=== PATIENT | female | born 1960 | race Caucasian/White ===

== ENCOUNTER 2025-02-28 | Day surgery (SDC) | payer OTHER, SELFPAY ==
--- NOTE | 2025-02-25 05:01 | PM.IMHP ---
H&P: HPI History of Present Illness Date/Time: 02/25/25 05:01 Chief Complaint: UUI Narrative: UUI with >50% improvement the PNE trial Review of Systems Review of Systems: All systems reviewed & are unremarkable except as noted in HPI and below Meds Home Medications and Allergies Allergies Allergy/AdvReac Type Severity Reaction Status Date / Time No Known Allergies Allergy Unverified 12/03/18 14:21 Exam Narrative: NAD Normal breathing A+O x3 Assessment and Plan Assessment and plan (1) Urge incontinence: Code(s): N39.41 - Urge incontinence Status: Acute Assessment and Plan: Neurostimulator Implant
[2025-02-25 10:35] VITALS: BMI 33.5
--- NOTE | 2025-02-25 10:43 | PC.NURSE ---
Report to the Outpatient Waiting Room, entrance under the green pavilion located off [facility], at time _0700_ on date _[id number]_. Planned Procedure Time: _0900_.? Time changes happen often and if your time is changed the preop area will call you the afternoon before. - You and your visitor will be asked to self-screen and do not enter if you have any COVID symptoms. Please call surgeon if you need to reschedule. - A mask is optional within the hospital at this time. Patients may have clear liquids (water, carbonated beverages, clear teas, apple juice) until 3 hours prior to surgery with a maximum of 20 ounces. - No food from midnight until time of surgery and no smoking, or chewing tobacco (or any form of nicotine). No chewing gum, candy or mints. Take only the following medications with a SIP of water on the morning of surgery: ___None____ DO NOT STOP ANY OF YOUR OTHER PRESCRIPTION MEDICATIONS PRIOR TO SURGERY EXCEPT THE FOLLOWING Hold all vitamins and supplements for 3 days per anesthesiologist. Medications to discontinue per physician Date to take last dose Please no make-up, nail kenyan, hairspray, perfume, deodorant, or body powder the day of surgery.? No jewelry (including any body piercings) or valuables the day of surgery, leave them at home.? Please take a shower or bath the night before, or the morning of, surgery with an antibacterial soap.? Wear comfortable, loose fitting clothing.? - Jewelry must be removed prior to entering the operating room.? Rings and piercings that are not removed may be cut off. - The hospital will not accept responsibility for valuables.? - Please leave all valuables, including medications, at home the day of surgery. If you are going home after surgery, a licensed transit mixer driver must drive you home.? - NO public transportation without another adult if you receive anesthesia. - We recommend that an adult stay with you for 24 hours following discharge. - We also recommend that you do not drive, make important decision, drink alcoholic beverages, or take any drugs that were not prescribed by your health care provider for at least 24 hours after your discharge time. Follow any additional instructions given to you from your surgeon. Telephone instructions given to __Katrina___and asked if any additional questions and then verbalized understanding. Patient advised to call surgeon office or pre surgery nurse liaison [phone] if any additional questions.
--- NOTE | ~2025-02-28 | XR_ITS ---
EXAMINATION: FLUORO NEUROSTIM INSERT < 1HR DATE: 02/28/2025 09:38 INDICATION: Neuro stimulator insertion TECHNIQUE: 2 fluoroscopic images in frontal and lateral projections of the sacrum were obtained niranjan chaudhry procedure performed by Dr. Rodríguez.. Radiologist was not present for the procedure or imaging. The amount of fluoroscopy time used during this procedure was 1.0 minutes. Total DAP was 11.402 Gycm^2. COMPARISON: None. FINDINGS: Distal tip of an Interstim lead extends from posterior to anterior through an S3 neural for amen. Markers are not indicating whether this is left or right-sided and there are no prior images fo r comparison. IMPRESSION: 1. Interstim lead extending through an S3 neural foramen. See procedure note for further detail and t o confirm whether this is on the right or left. Reviewed, dictated and finalized at location A. IMPRESSION: 1. Interstim lead extending through an S3 neural foramen. See procedure note fo r further detail and to confirm whether this is on the right or left.
--- OUTSIDE RECORDS SUMMARY | 2025-02-28 00:03 | XMS_ITS | Encounter Summary ---
Author Organization [facility] Address [address] [place] [address] Phone Care Team Providers Care School Operations Manager Name Role Phone Toby Mi MD Primary Care Provider [phone] Prisca Thorpe DO Primary Care Provider [phone] Shira Kimble MD Unavailable Porfirio Covarrubias MD Primary Care Provider Anaid Morrison MD Unavailable [phone] Gabriele ALICEA MD, Courtney Unavailable [phone] Meredith Mccormack DO Unavailable [phone] Encounter Details Date Type Department Care Team (Late st Contact Info) Description 12/28/2018 Ophth Exam [facility] Op[facility]mology [address] [place] [address] 1[address] [place] [id number] Roz Looney MD PhD [id number] [address] Social History Tobacco Use Types Packs/Day Years Used Date Smoking Tobacco: Former Smokeless Tobacco: Never Alcohol Use Standard Drinks/Week Comments No 0 (1 standard drink = 0.6 oz pur e alcohol) Comments No Sex and Gender Information Value Date Recorded Sex Assigned at Not on file Legal Sex Female 3:24 PM VESSEL SCRAPPER Gender Identity Female 10/04/2021 7:16 AM VESSEL SCRAPPER Sexual Orientation Straight 02/03/2022 8: 50 PM CDT 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 Not on file Not on file documented as of this encounter Plan of Treatment Not on file documented as of this encounter Visit Diagnoses Not on filedocumented in this encounter Additional Health Concerns Infection Onset Date Last Indicated Resolved Time COVID: Suspected 10/24/2023 10/24/2023 10/24/2023 1:07 PM VESSEL SCRAPPER COVID: Suspected 10/24/2023 10/24/2023 10/24/2023 9:20 PM VESSEL SCRAPPER Influenza, adult 10/24/2023 10/24/2023 10/31/2023 3:05 AM VESSEL SCRAPPER documented as of this encounter Eye Exam Visual Acuity (Near card) Right eye Left eye Near sc 20/70 ph 20/20-1 20/20-1 Tonometry (Tonopen, 2:29 AM) Right eye Left eye Pressure 23 16 Pupils Dark Light Shape React APD Right eye 5 3 Round Slow None Left eye 3.5 2 Round Brisk None Visual Erazo Right eye Left eye Full Full Extraocular Movement Right eye Left eye Full Full Neuro/Psych Oriented x3: Yes Mood/Affect: Normal Dilation Both eyes: 2.5% Phenylephrin e, 1.0% Mydriacyl @ 2:30 AM External Exam Right eye Left eye External Mild ecchymosis and swelling of periorbital area Slit Lamp Exam Right eye Left eye Lids/Lashes As above Normal Conjunctiva/Sclera temp and sup ARMINDA, no conj lac. No FB seen in conj sac by everting lids, sweeping sup and inf fornice by cotton tips White and quiet Cornea Two epi defects (2mm x1mm at 0800 peripherally, 5mmx3.7mm in central area) and several epi erosion in the rest of cornea, Epithelial defect, Punctate stain, Epi defect, Epi erosion, Layered hyphema Clear Anterior Chamber 1-mm layered hyphema with blood stain infer. Rare cells and no flare Deep and quiet Iris Slightly dilated and slowly reac tive Round and reactive Lens trace NS Clear Vitreous Normal. No traci vit heme Normal Fundus Exam Right eye Left eye Disc Normal Normal C/D Ratio 0.1 0.1 Macula Normal Normal Vessels Normal. No heme or commotio Norm al Periphery Normal. No RD/RT Normal. Temp hy perpigmentary change Care Teams School Operations Manager Relationship Specialty Start Date End Date Toby Mi MD [address] [facility] [place] [address] PCP - General 08/01/17 12/15/19 Prisca Thorpe DO [address] [facility] [address] [address] PCP - General Family Medicine 12/16/19 06/23/24 Porfirio Covarrubias MD [address] [facility] [place] [address] PCP - General Family Medicine 06/24/24 Shira Kimble MD [address] [facility] [place] [address] Pi/Senior Research Associate Obstetrics and Gynecology 12/16/19 Anaid Morrison MD [address] [facility] [address] [place] [address] Consulting Physician Sleep Medicine 06/24/24 [place] [address] [address] [facility] [address] [place] [address] Consulting Physician Urology 06/24/24 Meredith Mccormack DO [address] [facility] [address] [place], [place] [id number] Consulting Physician Endocrinology Diabetes & Metabolism 08/06/24 documented as of this encounter
--- OUTSIDE RECORDS SUMMARY | 2025-02-28 00:04 | XMS_ITS | Referral Summary ---
Author Organization [facility] [address] Address [address] [place] [address] Phone Care Team Providers [employer] Speech Language Pathologist Name Role Phone Cam Amanda MD Unavailable Porfirio Covarrubias MD Primary Care Provider Anaid Morrison MD Unavailable [phone] Gabriele ALICEA MD, Courtney Unavailable [phone] Meredith Mccormack DO Unavailable [phone] Encounters Date Type Department Care Team Description 02/25/2025 Telephone [facility] - Sleep Medicine [address] [place] [address] [address] [place] [id number] Shavon Roa PRIOR AUTHORIZATION FOR ZOLPIDEM 12/30/2024 1:00 PM CDT Ancillary Procedure [facility] [address] [facility] [address] [place] [address] Encounter for screening mammogram for breast cancer 12/25/2024 Results Follow-Up [facility] [place] [address] [facility] [address] [place] [address] Porfirio Covarrubias MD Ferritin, Iron profile w/ IBC, Folate, Additional followed-up results: 7 12/23/2024 2:35 PM CDT Lab [facility] [address] [place], [place] Macrocytic anemia; Pure hypercholesterolemia; Class 1 obesity due to excess calories with serious comorbidity and body mass index (BMI) of 31.0 to 31.9 in adult 12/23/2024 1:45 PM CDT Office Visit [facility] [place] [address] [facility] [address] [place] [phone] Porfirio Covarrubias MD Pure hypercholesterolemia (Primary Dx); Primary insomnia; Non-toxic multinodular goiter; Class 1 obesity due to excess calories with serious comorbidity and body mass index (BMI) of 31.0 to 31.9 in adult; Bladder spasms; Non-seasonal allergic rhinitis due to other allergic trigger; Encounter for screening mammogram for malignant neoplasm of breast; Macrocytic anemia 12/16/2024 3:20 PM CDT Office Visit [facility] [address] [place] [facility] [address] [place] [phone] Cam Amanda MD Encounter for gynecological examination without abnormal finding (Primary Dx); Encounter for screening mammogram for breast cancer; Urinary frequency from Last 3 Months Allergies Active Allergy Reactions Criticality Noted Date Comments Doxepin Itching Low 09/05/2023 Medications cetirizine (ZyrTEC) 10 mg tabletIndications:Non- seasonal allergic rhinitis, unspecified trigger Take 1 tablet (10 mg total) by mouth daily as needed for allergies 90 tablet 3 024 2024 Active fluticasone propionate (FLONASE) 50 mcg/actuation nasal sprayIndications:Non-s easonal allergic rhinitis, unspecified trigger SHAKE LIQUID AND USE 2 SPRAYS IN EACH NOSTRIL DAILY 48 g 1 025 Active rosuvastatin (CRESTOR) 10 mg tabletIndications:Pure hypercholesterolemia Take 1 tablet (10 mg total) by mouth nightly 100 tablet 1 025 2024 Active zolpidem (AMBIEN) 10 mg tablet TAKE 1 TABLET(10 MG) BY MOUTH EVERY NIGHT NEEDED FOR SLEEP 90 tablet 1 025 Active rosuvastatin (CRESTOR) 10 mg tabletIndications:Pure hypercholesterolemia Take 1 tablet (10 mg total) by mouth nightly 100 tablet 1 024 2024 Discontinued( Reorder) zolpidem (AMBIEN) 10 mg tablet Take 1 tablet (10 mg total) by mouth nightly as needed for sleep 90 tablet 1 024 2024 Discontinued Active Problems Problem Noted Date Diagnosed Date Preventative health care 06/24/2024 Assessment & Plan (06/24/2024 3:56 PM CDT): - New or chronic worsening conditions: allergic rhinitis - Mental health: no significant psychiatric/mental health conditions affecting her day to day functioning - Dental health: Recommend regular dental care and cleaning. Discussed importance of regular tooth brushing, flossing, and dental visits. - Nutrition: Recommend moderation in sodium/caffeine intake, saturated fat and cholesterol, caloric balance, sufficient intake of fresh fruits, vegetables - Exercise: Recommend to exercise at least 30 minutes moderate to vigorous exercise most days of the week. (minimum 150 minutes weekly) - Immunizations: Age and sex appropriate immunizations reviewed and offered - Cervical Cancer screening: s/p partial hysterectomy, follows with OBGYN - Breast Cancer screening: Up to date - Colon cancer screening: Up to date - Lung cancer screening: not indicated - Bone desnity/osteoporosis screening:not indicated - control: s/p partial hysterectomy Personal history of tobacco use 06/24/2024 Overview (12/23/2024): Quit 1997 Assessment & Plan (06/24/2024 3:46 PM CDT): Social History Tobacco Use Smoking Status Former Average packs/day: 0.8 packs/day for 22.0 years (16.5 ttl pk-yrs) Types: Cigarettes Start date: 1975 Smokeless Tobacco Never - continue with abstinence History of neck surgery 06/24/2024 Overview (06/24/2024): S/p Cervical fusion involving C6-C7 Assessment & Plan (06/24/2024 3:51 PM CDT): - hx of neck surgery [address] Fu - hx of cervical fusion involving C6-C7 Non-seasonal allergic rhinitis 06/24/2024 Assessment & Plan (12/23/2024 2:17 PM CDT): - recent diagnosis - recommend cetirizine 10 daily and Fluticasone nasal sprays The current medical regimen is effective; continue present plan and medications. Assessment & Plan (06/24/2024 3:58 PM CDT): - new diagnosis - recommend cetirizine 10 daily and start Fluticasone nasal sprays, order placed Primary insomnia 03/06/2023 Overview (12/23/2024): Managed by sleep medicine [id number] Assessment & Plan (12/23/2024 2:11 PM CDT): - Chronic longstanding initial and sleep maintenance insomnia - Well controlled with zolpidem 10 mg and behavioral measures for insomnia, plus better control of bladder symptoms. Continue zolpidem 10 mg nightly. - Established and managed by sleep medicine now The current medical regimen is effective; continue present plan and medications. Assessment & Plan (09/23/2024 9:02 AM GRAPPLE SKIDDER OPERATOR): Chronic longstanding initial and sleep maintenance insomnia. Now well controlled with zolpidem 10 mg and behavioral measures for insomnia, plus better control of bladder symptoms. Continue zolpidem 10 mg nightly. Assessment & Plan (06/24/2024 3:34 PM CDT): - Chronic longstanding initial and sleep maintenance insomnia. - Well controlled with zolpidem 10 mg and behavioral measures for insomnia, plus better control of bladder symptoms. Continue zolpidem 10 mg nightly. - Established and managed by sleep medicine now Assessment & Plan (03/18/2024 9:52 AM CDT): Chronic longstanding initial and sleep maintenance insomnia. Now well controlled with zolpidem 10 mg and behavioral measures for insomnia, plus better control of bladder symptoms. Continue zolpidem 10 mg nightly. Assessment & Plan (08/31/2023 1:04 PM GRAPPLE SKIDDER OPERATOR): Chronic longstanding initial and sleep maintenance insomnia. Improved with zolpidem but with persistent and problematic nighttime awakenings during the second half of the night. Will trial extended release zolpidem for improved sleep maintenance. Advised against checking the clock if she wakes during the night. Assessment & Plan (08/08/2023 10:58 AM GRAPPLE SKIDDER OPERATOR): No improvement. 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 Refer to Sleep Medicine. Assessment & Plan (03/06/2023 9:10 AM CDT): Trial of Ambien, will follow. Decrease caffeine intake. Xanthelasma of left lower eyelid 03/06/2023 Assessment & Plan (03/06/2023 9:18 AM CDT): Encouraged low chol diet. Bladder spasms 04/12/2021 Overview (12/23/2024): Follows with Urology Assessment & Plan (12/23/2024 2:16 PM CDT): - followed and evaluated by Urology - She has tried Myrbetriq(06/2023) and Oxybutynin (07/2023). She has failed Gemtesa. - she has spastic bladder, she was evaluated by a specialist and concluded that she get botox injections for her bladder and has declined the recommendation Assessment & Plan (06/24/2024 3:52 PM CDT): - followed and evaluated by Urology - She has tried Myrbetriq(06/2023) and Oxybutynin (07/2023). She has failed Gemtesa. - she has spastic bladder, she was evaluated by a specialist and concluded that she get botox injections for her bladder and has declined the recommendation Assessment & Plan (04/12/2021 10:43 AM CDT): Trial of Detrol LA. if no improvement, consider referral to urologist. Class 1 obesity due to exces s calories with serious comorbidity and body mass index (BMI) of 31.0 to 31.9 in adult 04/20/2020 Assessment & Plan (12/23/2024 2:14 PM CDT): Wt Readings from Last 3 Encounters: 12/23/24 84.4 kg (186 lb) 12/16/24 83.9 kg (185 lb) 11/02/24 81.6 kg (180 lb) Body mass index is 31.91 kg/m . - chronic condition, not at goal - BMI Follow-up includes: nutrition counseling, exercise counseling and education provided - Recommend to exercise at least 30 minutes moderate to vigorous exercise most days of the week. (minimum 150 minutes weekly) - Co-morbidities: Hypercholesterolemia Assessment & Plan (06/24/2024 3:35 PM CDT): Wt Readings from Last 3 Encounters: 06/24/24 83 kg (183 lb) 03/18/24 84.1 kg (185 lb 6.4 oz) 12/11/23 84.6 kg (186 lb 6.4 oz) Body mass index is 31.17 kg/m . - chronic condition, not at goal - BMI Follow-up includes: nutrition counseling, exercise counseling and education provided - Recommend to exercise at least 30 minutes moderate to vigorous exercise most days of the week. (minimum 150 minutes weekly) - Co-morbidities: Hypercholesterolemia Pure hypercholesterolemia 12/19/2019 Overview (03/06/2023): Patient with xanthelasma. Assessment & Plan (12/23/2024 2:15 PM CDT): - chronic condition, better controlled - currently on Rosuvastatin 10 mg nightly - most recent labs as shown below - aware of risk with elevated cholesterol The current medical regimen is effective; continue present plan and medications. Lab Results Component Value Date CHOL 146 07/01/2024 CHOL 240 (H) 08/28/2023 CHOL 216 (H) 03/06/2023 Lab Results Component Value Date HDL 61 07/01/2024 HDL 56 08/28/2023 HDL 57 03/06/2023 Lab Results Component Value Date LDLCALC 75 07/01/2024 LDLCALC 168 (H) 08/28/2023 LDLCALC 144 (H) 03/06/2023 LDL 205 (H) 12/17/2019 LDL 140 (H) 05/20/2016 LDL 158 (H) 11/20/2015 Lab Results Component Value Date TRIG 41 07/01/2024 TRIG 78 08/28/2023 TRIG 76 03/06/2023 Assessment & Plan (06/24/2024 3:35 PM CDT): - chronic condition, uncontrolled - per prior PCP documented Non-compliant with statin therapy. Labs are pending. Patient will go get them done soon. Low chol diet recommended. Recommend statin medication. - currently on Rosuvastatin 5 mg nightly - most recent labs as shown below - aware of risk with elevated cholesterol - recheck labs, order placed Lab Results Component Value Date CHOL 240 (H) 08/28/2023 CHOL 216 (H) 03/06/2023 CHOL 204 (H) 02/21/2022 Lab Results Component Value Date HDL 56 08/28/2023 HDL 57 03/06/2023 HDL 68 02/21/2022 Lab Results Component Value Date LDLCALC 168 (H) 08/28/2023 LDLCALC 144 (H) 03/06/2023 LDLCALC 127 02/21/2022 LDL 205 (H) 12/17/2019 LDL 140 (H) 05/20/2016 LDL 158 (H) 11/20/2015 Lab Results Component Value Date TRIG 78 08/28/2023 TRIG 76 03/06/2023 TRIG 44 02/21/2022 Assessment & Plan (08/08/2023 10:54 AM GRAPPLE SKIDDER OPERATOR): Non-compliant with statin therapy. Labs are pending. Patient will go get them done soon. Low chol diet recommended. Recommend statin medication. Assessment & Plan (03/06/2023 9:11 AM CDT): Low chol diet recommended. Labs ordered. Assessment & Plan (02/25/2022 10:03 PM CDT): LDL at goal of < 100. Cont dietary modifications. Assessment & Plan (12/21/2020 1:56 PM CDT): Clinically improved, continue current dietary changes. Assessment & Plan (04/20/2020 10:00 AM CDT): Continue dietary modifications, weight reduction and exercise. S/P hysterectomy 12/16/2019 Overview (06/24/2024): S/p partial hysterectomy FH: breast cancer 12/16/2019 Posterior vitreous detachment, both eyes 019 Assessment & Plan (01/10/2019 10:59 AM CDT): Educated patient on condition, likely the PVD/vit syn suspended over posterior pole that is mildly blurring vision. Call immediately if any new floaters, flashes, or curtain/veil over vision. Otherwise can f/u in 1 month with repeat DFE. 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 - continue erythromycin ointment as directed - Can switch ointment to AFT gtt prn if blurred vision is bothersome Non-toxic multinodular goiter 02/08/2018 Overview (08/06/2024): Established with Dr. Mccormack - Endocrinology 08/25 Assessment & Plan (12/23/2024 2:12 PM CDT): - hx of thyroid nodules - last US thyroid as shown below from 2019 - used to follow with Endocrinology Dr. Stanford, established with Dr. Mccormack on 08/2024 - Ultrasound in January/2018 showed 1 cm nodule on right lobe - Benign FNA biopsy in March/2018 - continue management per Endocrinology US Thyroid 11/2019 FINDINGS: RIGHT: 1.3 x 1.5 x 4.4 cm. Normal parenchymal echogenicity and vascularity. There is a small hypoechoic nodule measuring 1.0 x 0.6 x 0.6 cm with some tiny internal echogenic foci which could be due to microcalcifications. This nodule is wider than it is tall and appears smoothly marginated. When comparison is made to the study dated 02/22/2018, this does not appear significantly changed in size. This nodule was biopsied on 03/02/2018. LEFT: 1.6 x 1.1 x 4.3 cm. Normal parenchymal echogenicity and vascularity. No dominant nodule. ISTHMUS: mm AP dimension. Normal parenchymal echogenicity and vascularity. No dominant nodule. Assessment & Plan (06/24/2024 3:42 PM CDT): - hx of thyroid nodules - last US thyroid as shown below from 2019 - used to follow with Endocrinology Dr. Stanford - Ultrasound in January/2018 showed 1 cm nodule on right lobe - Benign FNA biopsy in March/2018 - recheck, order placed for US Thyroid, and refer to Endocrinology as well US Thyroid 11/2019 FINDINGS: RIGHT: 1.3 x 1.5 x 4.4 cm. Normal parenchymal echogenicity and vascularity. There is a small hypoechoic nodule measuring 1.0 x 0.6 x 0.6 cm with some tiny internal echogenic foci which could be due to microcalcifications. This nodule is wider than it is tall and appears smoothly marginated. When comparison is made to the study dated 02/22/2018, this does not appear significantly changed in size. This nodule was biopsied on 03/02/2018. LEFT: 1.6 x 1.1 x 4.3 cm. Normal parenchymal echogenicity and vascularity. No dominant nodule. ISTHMUS: mm AP dimension. Normal parenchymal echogenicity and vascularity. No dominant nodule. History of hepatitis C virus infection 6 Assessment & Plan (06/24/2024 3:43 PM CDT): - hx of hepatitis C virus infection - hx of addiction poly-susbtance use (heroine, coccaine), quit 25+ years ago - she was treated with Hepatiis C treatment Lab Results Component Value Date ALT 10 08/28/2023 AST 20 08/28/2023 ALKPHOS 69 08/28/2023 BILITOT 0.2 08/28/2023 Resolved Problems Problem Noted Date Diagnosed Date Resolved Date Influenza A 10/25/2023 06/24/2024 Anemia 02/21/2022 03/06/2023 Neck pain 10/12/2020 03/06/2023 Assessment & Plan (10/12/2020 10:08 AM GRAPPLE SKIDDER OPERATOR): Soft tissue ultrasound of neck ordered. Will follow. Refusal of statin medication by patient 04/20/2020 06/24/2024 Assessment & Plan (03/06/2023 9:11 AM CDT): Patient states that she's willing to try a statin if she has to. Traumatic hyphema of right eye 01/02/2019 12/16/2019 Assessment & Plan (01/10/2019 11:00 AM CDT): Resolved Assessment & Plan (01/02/2019 8:42 AM CDT): - Resolved, IOP fine today - Discussed return precautions in the case of re-bleed, including worsening vision, pain, redness, headache, nausea/vomiting Iritis of right eye 12/30/2018 12/22/19 21 Assessment & Plan (01/02/2019 8:44 AM CDT): - Only rare cell today although patient still mildly photophobic - D/C cyclogyl. 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 - Undilated check in 1 week Assessment & Plan (12/30/2018 1:46 PM CDT): Hyphema resolved, only mixed cell remains. 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 No madarosis or other concerning features. - Monitor Assessment & Plan (12/30/2018 1:48 PM CDT): OU, larger on right than left at the lower lid eyelash line on both sides. Looks cystic. - monitor size Dislocation of proximal inte rphalangeal joint of right little finger 11/22/2018 12/16/2019 Closed avulsion fracture of middle phalanx of finger 11/22/2018 12/16/2019 Closed dislocation of interp halangeal joint of finger of right hand 11/21/2018 12/16/2019 Class 1 obesity due to exces s calories without serious comorbidity with body mass index (BMI) of 31.0 to 31.9 in adult 08/30/2016 Overview (01/07/2017): BMI 30+ - obesity Anxiety 11/13/2015 12/23/2024 Arthritis 07/30/2013 06/24/2024 Immunizations Immunization Administration Dates Next Due Influenza, Trivalent, Recomb inant, Egg Free, Preservative Free, Antibiotic Free, IM (FLUBLOK) 06/02/2024 Influenza, Unspecified 08/08/2023(Deferr ed: Patient Refused),08/08/2022(Deferred: Patient Refused),07/02/2020,07/02/2019(Deferred : Patient Refused) Pfizer SARS-CoV-2 Monovalent Vaccination (12+ Yrs) PURPLE 12/14/2020,12/04/2020,11/23/2020 RSV Vaccine, Pref, Recombina nt, Subunit, Adjuvanted, PF, IM (Arexvy) 03/24/2024 Tdap 03/24/2024,12/28/2018 ZOSTER Recombinant 06/02/2024,03/24/2024 Social History Tobacco Use Types Packs/Day Years Used Date Smoking Tobacco: Former Cigarettes 0.8 22 1 976 - 1998 Smokeless Tobacco: Never Tobacco Cessation:Counseling Given: Yes Alcohol Use Standard Drinks/Week Comments No 0 (1 standard drink = 0.6 oz pur e alcohol) AUDIT-C Answer Date Recorded Q1: How often do you have a drink containing alcohol? Never 12/23/2024 Q2: How many drinks containi ng alcohol do you have on a typical day when you are drinking? Patient does not drink Q3: How often do you have si x or more drinks on one occasion? Never 12/23/2024 PHQ-2 Answer Date Recorded PHQ-2 Total Score (If total score is 3 or more points, staff should administer the PHQ-9) 0 12/23/2024 Personal Safety Answer Date Recorded Have you ever been in or are you currently in a harmful physical or emotional relationship or is someone making you feel afraid or unsafe? 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 Not on file Not on file Last Filed Vital Signs Vital Sign Reading Time Taken Comments Blood Pressure 100/60 12/23/2024 1:37 PM CDT Pulse 59 12/23/2024 1:37 PM CDT Temperature 36.5 C (97.7 F) 12/23/2024 1:37 PM CDT Respiratory Rate 16 12/23/2024 1:37 PM CDT Oxygen Saturation 99% 12/23/2024 1:37 PM CDT Inhaled Oxygen Concentration - - Weight 84.4 kg (186 lb) 12/23/2024 1:37 PM CDT Height 162.6 cm (5' 4.02) 12/23/2024 1:37 PM CD T Body Mass Index 31.91 12/23/2024 1:37 PM CDT Plan of Treatment Not on file Procedures Procedure Name Priority Date/Time Associated Diagnosis Comments SCREENING MAMMOGRAM BILATERAL W AFSHIN Schedule Routine, Read Routine (OP Routine) 12/30/2024 1:07 PM CDT Encounter for screening mammogram for breast cancer EGFR Routine 12/23/2024 2:33 PM CDT Class 1 obesity due to excess calories with serious comorbidity and body mass index (BMI) of 31.0 to 31.9 in adult DIFFERENTIAL AUTO Routine 12/23/2024 2:3 3 PM CDT Class 1 obesity due to excess calories with serious comorbidity and body mass index (BMI) of 31.0 to 31.9 in adult CBC WITH AUTO DIFFERENTIAL Routine 12/23/2024 2:33 PM CDT Class 1 obesity due to excess calories with serious comorbidity and body mass index (BMI) of 31.0 to 31.9 in adult COMPREHENSIVE METABOLIC PANEL Routine 12/23/2024 2:33 PM CDT Class 1 obesity due to excess calories with serious comorbidity and body mass index (BMI) of 31.0 to 31.9 in adult LIPID PANEL Routine 12/23/2024 2:33 PM CDT Pure hypercholesterolem ia Class 1 obesity due to excess calories with serious comorbidity and body mass index (BMI) of 31.0 to 31.9 in adult THYROID FUNCTION CASCADE Routine 12/23/2024 2:33 PM CDT Pure hypercholesterolem ia Class 1 obesity due to excess calories with serious comorbidity and body mass index (BMI) of 31.0 to 31.9 in adult VITAMIN B12 Routine 12/23/2024 2:33 PM CDT Macrocytic anemia FOLATE Routine 12/23/2024 2:33 PM CDT Macrocytic anemia IRON PROFILE W/ IBC Routine 12/23/2024 2 :33 PM CDT Macrocytic anemia FERRITIN Routine 12/23/2024 2:33 PM CDT Macrocytic anemia HEPATITIS C RNA, QUANTITATIVE, PCR Routine 07/01/2024 9:33 AM CDT History of hepatitis C virus infection HM PAP SMEAR WITH HPV Routine 09/28/2020 COLONOSCOPY 11/30/2015 12:00 AM GRAPPLE SKIDDER OPERATOR from Last 3 Months or Most Recently Relevant to Health Maintenance Results * Screening Mammogram Bilateral W Afshin (12/30/2024 1:07 PM CDT) Anatomical Region Laterality Modality Breast Bilateral Mammography 12/30/2024 5:48 PM CDT Impressions 12/30/2024 5:48 PM CDT There is no mammographic evidence of malignancy. A 1 year screening mammogram is recommended. BI-RADS: 1 - Negative. The patient has been or will be contacted. The patient will be entered into a reminder system with a target due date of 1 year for her next mammogram. Electronically signed by: Edilma Hayes M.D. Narrative 12/30/2024 5:48 PM CDT EXAMINATION: SCREENING MAMMOGRAM BILATERAL W AFSHIN ORDERING HEALTHCARE PROVIDER: CAM AMANDA HISTORY: Routine screening mammography. COMPARISON: 12/18/2023, 10/24/2022, 09/13/2021, 09/07/2020 TECHNIQUE: CC and MLO views of the bilateral breasts were obtained with digital technique using breast tomosynthesis with C view. Computer aided detection was utilized. FINDINGS: DENSITY: There are scattered areas of fibroglandular density. BREASTS: There are no suspicious masses, suspicious calcifications, or other suspicious findings in either breast. There has been no suspicious interval change. us Cam Amanda MD IMG MAMMO PROCEDURES Final Result * eGFR (12/23/2024 2:33 PM CDT) eGFR >90 >=60 mL/min/1. 73 m2 Comment: Interpretive Data Reference Interval Normal >/= 90 mL/min/1.73m2 Mildly decreased* 60 - 89 mL/min/1.73m2 Mildly to moderately decreased 45 - 59 mL/min/1.73m2 Moderately to severely decreased 30 - 44 mL/min/1.73m2 Severely decreased 15 - 29 mL/min/1.73m2 Kidney Failure < 15 mL/min/1.73m2 *Relative to young adult level Estimated glomerular filtration rate is determined by the 2020 CKD-EPI equation recommended by the National Kid[employer] (A Unifying Approach to GFR Estimation: Recommendations of the NKF-ASK Task Force on Reassessing the Inclusion of Race in Diagnosing Kidney Disease, JASN 2020). The CKD-EPI equation should not be used for patients with unstable renal function and has not been validated in children and those over 70. Current interpretive data was last reviewed 2021. Blood 12/23/2024 2:33 PM CDT 12/23/2024 3:37 PM CDT us Porfirio Covarrubias MD LAB BLOOD ORDERABLES Fi nal Result [facility] ([facility]) [address] [facility] Department [place] [address] * Differential, auto (12/23/2024 2:33 PM CDT) Neutrophil abs 3.2 1.5 - 6.5 K/cumm Imm gran abs 0.0 0.0 - 0.1 K/cumm [facility] ([facility]) Lymphocyte abs 1.7 0.8 - 3.3 K/cumm [facility] ([facility]) Monocyte abs 0.4 0.2 - 0.8 K/cumm [facility] ([facility]) Eosinophil abs 0.1 0.0 - 0.5 K/cumm [facility] ([facility]) Basophil abs 0.0 0.0 - 0.1 K/cumm [facility] ([facility]) Neutrophil pct 59.1 % [facility] ([facility]) Comment: Interpretive Data Percent cell count reference ranges are not reported, since discordance with absolute values may lead to misinterpretation of CBC data. Current Interpretive Data was last revised on 2018. Imm gran pct 0.0 % [facility] ([facility]) Comment: Interpretive Data Percent cell count reference ranges are not reported, since discordance with absolute values may lead to misinterpretation of CBC data. Current Interpretive Data was last revised on 2018. Lymphocyte pct 31.3 % [facility] ([place] [place]) Comment: Interpretive Data Percent cell count reference ranges are not reported, since discordance with absolute values may lead to misinterpretation of CBC data. Current Interpretive Data was last revised on 2018. Monocyte pct 8.1 % [facility] ([place]) Comment: Interpretive Data Percent cell count reference ranges are not reported, since discordance with absolute values may lead to misinterpretation of CBC data. Current Interpretive Data was last revised on 2018. Eosinophil pct 1.1 % [facility] ([place]) Comment: Interpretive Data Percent cell count reference ranges are not reported, since discordance with absolute values may lead to misinterpretation of CBC data. Current Interpretive Data was last revised on 2018. Basophil pct 0.4 % [facility] ([place]) Comment: Interpretive Data Percent cell count reference ranges are not reported, since discordance with absolute values may lead to misinterpretation of CBC data. Current Interpretive Data was last revised on 2018. Blood 12/23/2024 2:33 PM CDT 12/23/2024 3:37 PM CDT Porfirio Covarrubias MD LAB BLOOD ORDERABLES Fi nal Result Performing Organization Address City/[facility]/ZIP Co de Phone Number SONALI [facility] (POY SIPPI) 1 [facility] [place] [address] * Thyroid Function [place] (12/23/2024 2:33 PM CDT) TSH 1.79 0.30 - 4.20 mcIUnit/mL Blood 12/23/2024 2:33 PM CDT 12/23/2024 3:37 PM CDT Porfirio Covarrubias MD LAB BLOOD ORDERABLES Fi nal Result Performing Organization Address City/[facility]/ZIP Co de Phone Number SONALI [facility] (POY [facility]) 1 [facility] [place] [email or web address] [address] * Iron profile w/ IBC (12/23/2024 2:33 PM CDT) Iron 78 35 - 145 mcg/dL TIBC 268 250 - 400 mcg/dL [facility] ([place]) Transferrin saturation 29 20 - 50 % [facility] ([place]) Blood 12/23/2024 2:33 PM CDT 12/23/2024 3:37 PM CDT Porfirio Covarrubias MD LAB BLOOD ORDERABLES Fi nal Result [facility] ([place]) 1 [facility] [place] [address] * (ABNORMAL) CBC with auto differential (12/23/2024 2:33 PM CDT) WBC 5.3 3.8 - 9.9 K/cumm Hgb 12.4 11.9 - 15.5 g/dL [facility] ([place]) Hct 36.4 35.6 - 45.5 % [facility] ([place]) Plt 215 150 - 400 K/cumm [facility] ([place]) MPV 10.2 9.1 - 12.3 fL [facility] ([place]) RBC 3.66(L) 3.90 - 5.20 M/cumm [facility] ([place]) MCV 99.5(H) 81.3 - 96.4 fL [facility] ([place]) MCH 33.9(H) 27.1 - 33.3 pg [facility] ([place]) MCHC 34.1 32.3 - 35.7 g/dL [facility] ([place]) RDW CV 12.4 11.1 - 14.9 % [facility] ([place]) RDW SD 45.0 35.7 - 48.1 fL [facility] ([place]) NRBC abs 0.00 0.00 - 0.01 K/cumm [facility] ([place]) Blood 12/23/2024 2:33 PM CDT 12/23/2024 3:37 PM CDT us Porfirio Covarrubias MD LAB BLOOD ORDERABLES Fi nal Result S[facility]I [facility] ([place]) 1 [facility] [place] [address] * Folate (12/23/2024 2:33 PM CDT) Folic acid 9.1 >=5.0 ng/mL Comment:Slightly Hemolyzed S pecimen. Results may be affected. Blood 12/23/2024 2:33 PM CDT 12/23/2024 3:37 PM CDT Porfirio Covarrubias MD LAB BLOOD ORDERABLES Fi nal Result SONALI [facility] ([place] [place]) 1 [facility] [email or web address] [address] * (ABNORMAL) Ferritin (12/23/2024 2:33 PM CDT) Ferritin 166(H) 15 - 150 ng/mL Blood 12/23/2024 2:33 PM CDT 12/23/2024 3:37 PM CDT Porfirio Covarrubias MD LAB BLOOD ORDERABLES Fi nal Result Performing Organization Address [facility] Co de Phone Number SONALI [facility] (POY [place]IP[place]) 1 [facility] [email or web address] [address] * Vitamin B12 (12/23/2024 2:33 PM CDT) Vitamin B12 623 230 - 1,250 pg/mL Blood 12/23/2024 2:33 PM CDT 12/23/2024 3:37 PM CDT Porfirio Covarrubias MD LAB BLOOD ORDERABLES Fi nal Result Performing Organization Address City/[facility]/ZIP Co de Phone Number SONALI [facility] (POY [place]) 1 [facility] [place] [address] * Lipid panel (12/23/2024 2:33 PM CDT) Cholesterol 139 30 - 199 mg/dL Comment: Interpretive Data Ages < or = 19 years Acceptable: <170 mg/dL Borderline high: 170-199 mg/dL High: >or= 200 mg/dL Ages > or = 20 years Desirable: <200 mg/dL Borderline high: 200-239 mg/dL High: >or= 240 mg/dL Literature References: 1. Expert Panel on Integrated Guidelines for Cardiovascular Health and Risk Reduction in Children and Adolescents. Pediatrics 2011;128:S213 2. NCEP Expert Panel. Circulation 2004;110:227 Current Interpretive Data was last revised on 2018. Triglycerides 98 <=149 mg/dL [facility]ON[facility]I [facility] ([place]) Comment: Interpretive Data Ages < or = 9 years Acceptable: <75 mg/dL Borderline high: 75-99 mg/dL High: >or= 100 mg/dL Ages 10 to 20 years Acceptable: <90 mg/dL Borderline high: 90-129 mg/dL High: >or= 130 mg/dL Ages > or = 20 years Desirable: <150 mg/dL Borderline high: 150-199 mg/dL High: 200-499 mg/dL Very high: >or= 499 mg/dL Literature References: 1. Expert Panel on Integrated Guidelines for Cardiovascular Health and Risk Reduction in Children and Adolescents. Pediatrics 2011;128:S213 2. NCEP Expert Panel. Circulation 2004;110:227 Current Interpretive Data was last revised on 2018. HDL 52 >=40 mg/dL SONALI Tom ([place]) Comment: Interpretive Data Ages < or = 19 years Acceptable: >45 mg/dL Borderline low: 40-45 mg/dL Low: <40 mg/dL Ages > or = 20 years Desirable: >or= 60 mg/dL Low: <40 mg/dL Literature References: 1. Expert Panel on Integrated Guidelines for Cardiovascular Health and Risk Reduction in Children and Adolescents. Pediatrics 2011;128:S213 2. NCEP Expert Panel. Circulation 2004;110:227 Current Interpretive Data was last revised on 2018. LDL, calculated 69 <=129 mg/dL [facility] ([place]) Comment: Interpretive Data Ages < or = 19 years Acceptable: <110 mg/dL Borderline high: 110-129 mg/dL High: >or= 130 mg/dL Ages > or = 20 years Optimal: <100 mg/dL Near optimal: 100-129 mg/dL Borderline high: 130-159 mg/dL High: >160 mg/dL Calculated using the Elias LDL-C estimating equation. This equation was implemented on 2024. Prior to this date LDL-C was estimated using the Friedewald equation. Literature References: 1. Expert Panel on Integrated Guidelines for Cardiovascular Health and Risk Reduction in Children and Adolescents. Pediatrics 2011;128:S213 2. NCEP Expert Panel. Circulation 2004;110:227 3. Curt M et al. JOSE Cardiol. 2020 January 30;5(5):540-548. doi: 10.1001/[email or web address] Current Interpretive Data was last revised on 2024. Non-HDL Cholesterol 87 mg/dL [facility] ([place]) Comment: Interpretive Data Ages < or = 19 years Acceptable: <120 mg/dL Borderline high: 120-144 mg/dL High: >145 mg/dL Ages > or = 20 years When triglycerides are >200 mg/dL, Non-HDL cholesterol is a secondary target of therapy with treatment goals that are 30 mg/dL greater than the LDL cholesterol target. Literature References: 1. Expert Panel on Integrated Guidelines for Cardiovascular Health and Risk Reduction in Children and Adolescents. Pediatrics 2011;128:S213 2. NCEP Expert Panel. Circulation 2004;110:227 Current Interpretive Data was last revised on 2018. Chol/HDL ratio 3 [facility] ([facility] [place]) Blood 12/23/2024 2:33 PM CDT 12/23/2024 3:37 PM CDT Narrative [facility] ([place]) - 12/23/2024 4:37 PM CDT Has the patient been fasting for 8 hours or more?->No us Porfirio Covarrubias MD LAB BLOOD ORDERABLES Fi nal Result [facility] ([place]) 1 [facility] Department [place] [address] * Comprehensive metabolic panel (12/23/2024 2:33 PM CDT) Sodium 142 135 - 145 mmol/L Potassium, pl 3.5 3.3 - 4.9 mmol/L [facility] ([place]) Chloride 105 97 - 110 mmol/L [facility] ([place]) CO2 27 22 - 32 mmol/L [facility] ([place]) Anion gap 10 2 - 15 mmol/L [facility] ([place]) BUN 14 6 - 25 mg/dL [facility] ([place]) Creatinine 0.60 0.60 - 1.10 mg/dL [facility] ([place]) Glucose 97 70 - 199 mg/dL [facility] ([place]) Comment: Interpretive Data Fasting glucose >/= 126 mg/dl is diagnostic for diabetes. Fasting is defined as no caloric intake for at least 8 hours. Fasting glucose between 100 mg/dl to 125 mg/dl is diagnostic of prediabetes. In a patient with classic symptoms of hyperglycemia or hyperglycemic crisis, a random glucose >/= 200 mg/dl is diagnostic for diabetes. In the absence of unequivocal hyperglycemia, results should be confirmed by repeat testing. The classification and Diagnosis of Diabetes Diabetes Care 2021; 46: S19-S40. Current interpretive data was last revised 2022. Calcium 9.1 8.5 - 10.3 mg/dL [facility] ([place]) Bilirubin, total <0.2 0.1 - 1.2 mg/dL [facility] Protein, pl 6.6 6.5 - 8.5 g/dL [facility] ([place]) Albumin 4.1 3.5 - 5.0 g/dL [facility] ([place]) Alk phos 83 40 - 130 Units/L [facility] ([place]) ALT 10 7 - 45 Units/L [facility] ([place]) AST 17 10 - 45 Units/L [facility] ([place]) Blood 12/23/2024 2:33 PM CDT 12/23/2024 3:37 PM CDT Porfirio Covarrubias MD LAB BLOOD ORDERABLES nal Result [facility] ([facility] [place]) 1 [facility] Department [place] [address] * Hepatitis C (HCV) RNA PCR, quantitative Blood (07/01/2024 9:33 AM CDT) [facility] HCV RNA result Not Detected [facility] Comment: Collection date/time has been modified to: 09:33:00. Previous collection date/time: 03:35:00. The quantifiable range of this assay is 15 IU/mL to 100,000,000 IU/mL (1.18 log IU/mL to 8.00 log IU/mL). Testing was performed by the [facility]00 HCV Test ([employer] Testing performed at [facility] Current Interpretive Data was last revised on 2021 Testing performed by: [facility], [address] [facility], [place]., [address] Blood 07/01/2024 9:33 AM CDT 07/01/2024 9:45 AM CDT us Porfirio Covarrubias MD LAB MICROBIOLOGY - GENE RAL ORDERABLES Edited Result - Final [facility] (POY SIP[facility]) 1 [facility] [place] [address] BJ * HM PAP SMEAR WITH HPV (09/28/2020) Historical Provider HEALTH MAINTENANCE Final Result * COLONOSCOPY (11/30/2015 12:00 AM GRAPPLE SKIDDER OPERATOR) Anatomical Region Laterality Modality Other Narrative 11/30/2015 12:00 AM GRAPPLE SKIDDER OPERATOR Ordered by an unspecified provider. Procedure Note Provider, MD Nhan - 11/30/2015 12:00 AM CST PROCEDURE REPORT Patient: GIO RUSH Account: [id number] Room No: : 1960 Patient Type: [facility] Attend.: Teto Schneider M.D. Admit Date: 11/30/2015 Dict.: Teto Schneider M.D. Disch. Date: 11/30/2015 NAME OF PROCEDURE: Colonoscopy. DATE OF PROCEDURE: 11/30/2015 INDICATION: Screening for colon cancer. The patient never had one in thepast. FINDINGS 1. The colon mucosa was normal. I did not find any polyps. 2. A few diverticula is consistent with very mild diverticulosis. 3. Small internal hemorrhoids. PROCEDURE: The patient signed for consent. Risks and benefits of theprocedure were explained to the patient that included but not limited to bleeding, perforation, risk of medications, cardiorespiratory failure, andaspiration. The patient was agreeable to proceed. The patient was brought to theendoscopy suite, and we did a timeout. We used MAC anesthesia. The patient wasplaced in the left lateral decubitus position. After she was sedated I performed arectal exam that was normal. Then I introduced a colonoscope through the anus. Itwas advanced under direct visualization to the cecum. The quality of the prepwas very good. I identified the appendiceal orifice and the ileocecal valve.The terminal ileum was intubated and showed normal mucosa. Then I started withdrawing the scope very slowly, for which I took more than six minutesof careful evaluation. The colon mucosa and the vascular pattern was normal.I did not find any polyps. I only found a few diverticula through the colon.This was consistent with very mild diverticulosis. Retroflex view in the rectumonly showed tiny internal hemorrhoids without any bleeding. Then I removed thescope. PLAN 1. The patient is going to the recovery area and after waking up she cango home. 2. Given the negative colonoscopy she will need to have another onefor screening in about 10 years unless she develops any symptoms inbetween. 3. Follow up with primary care physician as needed. Thank you very much allowing us to participate in the care of yourpatient. Electronically Authenticated by: Teto Baker MD On 12/02/2015 01:39 PM GRAPPLE SKIDDER OPERATOR Elissa Flores/nikko TD: 12/01/2015 11:01 us Historical Provider ENDOSCOPY PROCEDURES Gisella l Result from Last 3 Months or Most Recently Relevant to Health Maintenance Insurance [facility] CIGNA CIGNA CIGNA WORKERS COMPENSATION GENERIC Care Teams School Speech Language Pathologist Relationship Specialty Start Date End Date Porfirio Covarrubisa MD PCP - General Family Medicine 06/24/24 Cam Amanda MD Fixture Designer Obstetrics and Gynecology 12/16/19 Anaid Morrison MD [address] [facility] [address] [place] [address] Consulting Physician Sleep Medicine 06/24/24 [place] [address] [place] [address] Consulting Physician Urology 06/24/24 Meredith Mccormack DO [address] [place] [facility] [address] [place] [address] Consulting Physician Endocrinology Diabetes & Metabolism 08/06/24
--- OUTSIDE RECORDS SUMMARY | 2025-02-28 00:04 | XMS_ITS | Clinical Summary ---
Author Organization [facility] Address [address] [place] [address] Phone Care Team Providers Care Masonry Instructor Name Role Phone Porfirio Covarrubias MD Primary Care Provider Prisca Thorpe DO Unavailable [phone] Gabriele ALICEA MD, Courtney Unavailable [phone] Allergies Active Allergy Reactions Criticality Noted Date Comments Doxepin Itching Low 09/05/2023 Medications Myrbetriq 50 MG TABLET SR 24 HR 06/14/2023 Act arlene oxybutynin (DITROPAN-XL) 5 MG TABLET SR 24 HR 07/06/2023 Active zolpidem (AMBIEN) 10 MG Tablet 06/28/2023 Active traMADol (ULTRAM) 50 MG Tablet TAKE 1 TABLET BY MOUTH EVERY 6 HOURS NEEDED FOR PAIN 05/26/2023 Active methylPREDNISol one (MEDROL DOSPACK) 4 MG Tablet Therapy Pack See product package insert for dosing schedule 21 Tablet 07/14/2024 Active cyclobenzaprine (FLEXERIL) 5 MG TabletIndicatio ns:Muscle Spasm Take 1 Tablet by mouth 3 times daily as needed for Muscle spasms. Indications: Muscle Spasm 15 Tablet 07/14/2024 Active Active Problems Problem Noted Date Diagnosed Date Overactive bladder 04/12/2021 Overview (07/10/2023): Last Assessment & Plan: Trial of Detrol LA. if no improvement, consider referral to urologist. Prolonged posttraumatic stress disorder 01/18/20 19 Closed dislocation of interp halangeal joint of finger of right hand 11/21/2018 Physical exam, annual (Adult) 01/10/2017 Non morbid obesity due to excess calories 2016 Family History Medical History Relation Name Comments Chronic Obstructive Pulmonary Disease Father Cancer Mother Relation Name Status Comments Father Mother Alive Social History Tobacco Use Types Packs/Day Years Used Date Smoking Tobacco: Former Smokeless Tobacco: Never Tobacco Cessation:Counseling Given: No Alcohol Use Standard Drinks/Week Comments No 0 (1 standard drink = 0.6 oz pur e alcohol) PHQ-2 Answer Date Recorded PHQ-2 Score 0 07/29/2019 Sexually Active Control Partners Comments Never does not drink Comments No Sex and Gender Information Value Date Recorded Sex Assigned at Not on file Legal Sex Female 1:32 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 Gender Identity Not on file Sexual Orientation Not on file Last Filed Vital Signs Vital Sign Reading Time Taken Comments Blood Pressure 122/70 07/14/2024 5:24 PM CDT Pulse 62 07/14/2024 5:24 PM CDT Temperature 36.8 C (98.2 F) 07/14/2024 2:56 PM CDT Respiratory Rate 18 07/14/2024 5:24 PM CDT Oxygen Saturation 100% 07/14/2024 5:24 PM CDT Inhaled Oxygen Concentration - - Weight 83.9 kg (185 lb) 07/14/2024 2:56 PM CDT Height 162.6 cm (5' 4) 07/14/2024 2:56 PM CDT Body Mass Index 31.76 07/14/2024 2:56 PM CDT Plan of Treatment Health Maintenance Due Date Last Done Comments Hepatitis C Virus (HCV) Screening 1960 Colonoscopy 2006 Colorectal Cancer Screening 2006 Cologuard 2011 Immunochemical Fecal Occult Blood 2011 Pneumococcal Immunization (50+ years) (1 of 1 - PCV) 2011 Mammogram 10/24/2023 10/24/2022, 09/01, 09/07/2020, Additional history exists Respiratory Syncytial Virus (RSV) Immunization (Adult) Completed 03/24/2024 TdaP Immunization Completed 03/24/2024, 12/28/2018 Influenza Immunization Completed 06/02/2024, 2019 SARS-COV-2 Immunization Completed 06/02/20 24, 05/02/2022, 08/05/2021, Additional history exists Zoster Immunization Completed 06/02/2024, 4 Hepatitis B Immunization Aged Out No longer eligible based on patient's age to complete this topic Human Papillomavirus (HPV) Immunization Aged Out No longer eligible based on patient's age to complete this topic Meningococcal Immunization (ACWY) Aged Out No longer eligible based on patient's age to complete this topic Rotavirus Immunization Aged Out No lo nger eligible based on patient's age to complete this topic Procedures Procedure Name Priority Date/Time Associated Diagnosis Comments SUMI SCREENING BILATERAL DIGI BALDEMAR W CAD W SOMMER Routine 08/19/2019 from Last 3 Months or Most Recently Relevant to Health Maintenance Results * SUMI SCREENING BILATERAL DIGITAL W CAD W SOMMER (08/19/2019) Anatomical Region Laterality Modality breast Bilateral Mammography us Not On File Provider IMG MAMMO ORDERABLES Final Result from Last 3 Months or Most Recently Relevant to Health Maintenance Insurance [employer] C[employer] Care Teams Masonry Instructor Relationship Specialty Start Date End Date Porfirio Covarrubias MD [address] [place] [address] PCP - General Family Medicine 07/14/24 Prisca Thorpe DO [address] [place] [address] Family Medicine 07/14/24 Alee Suazo III, MD [address] [place] [address] Consulting Physician Urology 09/18/23
--- OUTSIDE RECORDS SUMMARY | 2025-02-28 00:04 | XMS_ITS | Clinical Summary ---
Author Organization [facility] [address] Address [address] [place] [address] Phone Care Team Providers Care Studio Hand Name Role Phone Cam Amanda MD Unavailable Porfirio Covarrubias MD Primary Care Provider Anaid Morrison MD Unavailable [phone] Gabriele ALICEA MD, Courtney Unavailable [phone] Meredith Mccormack DO Unavailable Allergies Active Allergy Reactions Criticality Noted Date [...] 03/06/2023 Overview (12/23/2024): Managed by sleep medicine [id number] Assessment & Plan (12/23/2024 2:11 PM CDT): - Chronic longstanding initial and sleep maintenance insomnia - Well controlled with zolpidem 10 mg and behavioral measures for insomnia, plus better control of bladder symptoms. Continue zolpidem 10 mg nightly. - Established and managed by sleep medicine now The current medical regimen is effective; continue present plan and medications. Assessment & Plan (09/23/2024 9:02 AM HERPETOLOGY TEACHER): Chronic longstanding initial and sleep maintenance insomnia. [...] nightly. Assessment & Plan (08/31/2023 1:04 PM HERPETOLOGY TEACHER): Chronic longstanding initial and sleep maintenance insomnia. Improved with zolpidem but with persistent and problematic nighttime awakenings during the second half of the night. Will trial extended release zolpidem for improved sleep maintenance. Advised against checking the clock if she wakes during the night. Assessment & Plan (08/08/2023 10:58 AM HERPETOLOGY TEACHER): No improvement. Still waking up [facility]. Refer to Sleep Medicine. Assessment & [...] 02/21/2022 Assessment & Plan (08/08/2023 10:54 AM HERPETOLOGY TEACHER): Non-compliant with statin therapy. Labs are pending. [...] 03/06/2023 Assessment & Plan (10/12/2020 10:08 AM HERPETOLOGY TEACHER): Soft tissue ultrasound of neck ordered. 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 to [...] obesity Anxiety 11/13/2015 12/23/2024 Arthritis 07/30/2013 06/24/2024 Encounters Date Type Department Care Team Description 02/25/2025 Telephone [facility] - Sleep Medicine [address] [place] [address] [address] [place] [id number] Shavon Roa PRIOR AUTHORIZATION FOR ZOLPIDEM 12/30/2024 1:00 PM CDT Ancillary Procedure [facility] OP Lab [address] [place] [phone] Encounter for screening mammogram for breast cancer 12/25/2024 Results Follow-Up [facility] [place] [address] [facility] [address] [place] [address] Porfirio Covarrubias MD Ferritin, Iron profile w/ IBC, Folate, Additional followed-up results: 7 12/23/2024 2:35 PM CDT Lab [facility] [address] [place], [place] Macrocytic anemia; Pure hypercholesterolemia; Class 1 obesity due to excess calories with serious comorbidity and body mass index (BMI) of 31.0 to 31.9 in adult 12/23/2024 1:45 PM CDT Office Visit [facility] [place] [address] [facility] [address] [place] [phone] Porfirio Covarrubias MD Pure hypercholesterolemia (Primary Dx); Primary insomnia; Non-toxic multinodular goiter; Class 1 obesity due to excess calories with serious comorbidity and body mass index (BMI) of 31.0 to 31.9 in adult; Bladder spasms; Non-seasonal allergic rhinitis due to other allergic trigger; Encounter for screening mammogram for malignant neoplasm of breast; Macrocytic anemia 12/16/2024 3:20 PM CDT Office Visit [facility] [address] [facility] [address] [place] [phone] Cam Amanda MD Encounter for gynecological examination without abnormal finding (Primary Dx); Encounter for screening mammogram for breast cancer; Urinary frequency from Last 3 Months Immunizations Immunization Administration Dates Next Due Influenza, Trivalent, Recomb inant, Egg Free, Preservative Free, Antibiotic Free, IM (FLUBLOK) 06/02/2024 Influenza, Unspecified 08/08/2023(Deferr ed: Patient Refused),08/08/2022(Deferred: Patient Refused),07/02/2020,07/02/2019(Deferred : Patient Refused) Pfizer SARS-CoV-2 Monovalent Vaccination (12+ Yrs) PURPLE 12/14/2020,12/04/2020,11/23/2020 RSV Vaccine, Pref, Recombina nt, Subunit, Adjuvanted, PF, IM (Arexvy) 03/24/2024 Tdap 03/24/2024,12/28/2018 ZOSTER Recombinant 06/02/2024,03/24/2024 Surgical History Surgery Date Site/Laterality Comments TONSILLECTOMY tonsillectomy HYSTERECTOMY 10/02/1996 - 10/01/1997 Uterine prolapse: Vaginal hysterectomy and anterior repair BLADDER SUSPENSION Urinary incontinence: Mesh sling REPAIR PELVIC FLOOR DEFECT VAGINAL APPROACH W/ MESH Pelvic pain: Excision of exposed vaginal mesh CERVICAL SPINE SURGERY Cage placed around cervical vertebra Medical History Medical History Date Comments Hx Other Medical Uterine prolaps e Arthritis 2009 Arthritis Anxiety disorder Anxiety Hepatitis C virus infection Hepkarla Malhotra; Comments: TWM 11/13/2015 - Smoking previous Iritis of right eye 12/30/2018 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 Lesion of eyelid 12/30/2018 Family History Medical History Relation Name Comments Diabetes Father Diabetes mellit us; Breast cancer Maternal Grandmother Breast cancer Mother Breast cancer Mother's Sister Other Other 1 No family histo ry of Cancer, breast; Other Other 2 No family histo ry of Cancer, colon; Other Other 3 No family histo ry of Ovarian cancer; Cancer Other 4 Cancer, unknown ; Diabetes Paternal Grandmother Diabete s mellitus; Relation Name Status Comments Father Maternal Grandmother Mother Mother's Sister Other 1 Other 2 Other 3 Other 4 Paternal Grandmother Social History Tobacco Use Types Packs/Day Years [...] on file Legal Sex Female 3:24 PM HERPETOLOGY TEACHER Gender Identity Female 10/04/2021 7:16 AM HERPETOLOGY TEACHER Sexual Orientation Straight 02/03/2022 8: 50 PM CDT 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 Not on file Not on file Not on file Obstetrics History Para Term AB IAB SAB Ectopic Multiple Livin g Live Births 4 3 3 0 1 2 Date Outcome GA Total Labor Labor/2nd/3rd Weight Sex Type Anes PTL Genevieve A1 A5 Name Clin Term Term Term AB Last Filed Vital Signs Vital Sign Reading [...] 12/23/2024 1:37 PM CDT Plan of Treatment Health Maintenance Due Date Last Done Comments Pneumococcal vaccine <65 (1 of 2 - PCV) 1980 Colon Cancer Screening-Colonoscopy 11/29/2025 11/30/2015, 11/30/2015 Regular Well Visit/Exam 18-64 12/16/2025, 06/24/2024, 12/11/2023, Additional history exists Depression Screening 12/23/2025 12/23/2024, 07/19/2024, 06/24/2024, Additional history exists Breast Cancer Screening-Mammogram 12/30/2025 12/30/2024, 12/18/2023, 10/24/2022, Additional history exists DTaP/Tdap/Td Vaccine (3 - Td or Tdap) 03/24/2034 03/24/2024, 12/28/2018 Colon Cancer Screening-CT Colonography Discontinued 11/30/2015, 11/30/2015 Colon Cancer Screening-DNA Stool Discontinued 11/30/19 16, 11/30/2015 Colon Cancer Screening-FIT Discontinued 11/30/2015, Colon Cancer Screening-Sigmoidoscopy Discontinued 11/30/2015, 11/30/2015 Cervical Cancer Screening Discontinued 09/28/2020 Covid-19 Vaccine Completed 06/02/2024, 10/2021, 08/05/2021, Additional history exists Influenza Vaccine Completed 06/02/2024, 07/02/2020 Zoster Vaccine Completed 06/02/2024, 03/24/2024 Hepatitis B Screening Completed 07/01/2024 Hepatitis C Screening Completed 07/01/2024 , 07/01/2024, 06/24/2024, Additional history exists Procedures Procedure Name Priority Date/Time Associated Diagnosis [...] HPV Routine 09/28/2020 COLONOSCOPY 11/30/2015 12:00 AM HERPETOLOGY TEACHER from Last 3 Months or Most Recently [...] Covarrubias MD LAB BLOOD ORDERABLES nal Result [facility] ([place]) [address] [facility] Department of Laboratories [place], [place] [id number] * Differential, auto (12/23/2024 2:33 PM CDT) Neutrophil abs 3.2 1.5 - 6.5 K/cumm Imm gran abs 0.0 0.0 - 0.1 K/cumm [facility] ([place]) Lymphocyte abs 1.7 0.8 - 3.3 K/cumm [facility] ([place]) Monocyte abs 0.4 0.2 - 0.8 K/cumm [facility] ([place]) Eosinophil abs 0.1 0.0 - 0.5 K/cumm [facility] ([place]) Basophil abs 0.0 0.0 - 0.1 K/cumm [facility] ([place]) Neutrophil pct 59.1 % [facility] ([place]) Comment: Interpretive Data Percent cell count reference ranges are not reported, since discordance with absolute values may lead to misinterpretation of CBC data. Current Interpretive Data was last revised on 2018. Imm gran pct 0.0 % [facility] ([place]) Comment: Interpretive [...] LAB BLOOD ORDERABLES Fi nal Result [facility] ([place]) [address] [facility] [place] [address] * Thyroid Function [place] (12/23/2024 2:33 PM CDT) TSH 1.79 0.30 - 4.20 mcIUnit/mL Blood 12/23/2024 2:33 PM CDT 12/23/2024 3:37 PM CDT Porfirio Covarrubias MD LAB BLOOD ORDERABLES Fi nal Result [facility] ([place]) [address] [facility] [place] [address] * Iron profile w/ IBC (12/23/2024 2:33 PM CDT) Pathologist [facility] Iron 78 35 - 145 mcg/dL TIBC 268 250 - 400 mcg/dL [facility] ([place]) Transferrin saturation 29 20 - 50 % [facility] ([place]) Blood 12/23/2024 2:33 PM CDT 12/23/2024 3:37 PM CDT Porfirio Covarrubias MD LAB BLOOD ORDERABLES Fi nal Result Performing Organization Address [facility]/ZIP Co de Phone Number [facility] ([place]) [address] [facility] [place] [address] * (ABNORMAL) CBC with auto differential (12/23/2024 2:33 PM CDT) Pathologist [facility] WBC 5.3 3.8 - 9.9 K/cumm Hgb [...] BLOOD ORDERABLES Fi nal Result [facility] ([place]) 1 [facility] [place] [address] * Folate (12/23/2024 2:33 PM CDT) Pathologist [facility] Folic acid 9.1 >=5.0 ng/mL Comment:Slightly Hemolyzed S pecimen. Results may be affected. Blood 12/23/2024 2:33 PM CDT 12/23/2024 3:37 PM CDT Porfirio Covarrubias MD LAB BLOOD ORDERABLES Fi nal Result Performing Organization Address City/[facility]/ZIP Co de Phone Number [facility] ([place]) [address] [facility] [place] [address] * (ABNORMAL) Ferritin (12/23/2024 2:33 PM CDT) Pathologist [facility] Ferritin 166(H) 15 - 150 ng/mL Blood 12/23/2024 2:33 PM CDT 12/23/2024 3:37 PM CDT Porfirio Covarrubias MD LAB BLOOD ORDERABLES Fi nal Result Performing Organization Address City/[facility]/ZIP Co de Phone Number [facility] ([place]) [address] [facility] [place] [address] * Vitamin B12 (12/23/2024 2:33 PM CDT) Pathologist [facility] Vitamin B12 623 230 - 1,250 pg/mL Blood 12/23/2024 2:33 PM CDT 12/23/2024 3:37 PM CDT Porfirio Covarrubias MD LAB BLOOD ORDERABLES Fi nal Result [facility] ([place]) 1 [facility] [place] [address] * Lipid panel (12/23/2024 2:33 PM CDT) [...] mg/dL High: >160 mg/dL Calculated using the Curt LDL-C estimating equation. This equation was implemented on 2024. Prior to this date LDL-C was estimated using the Friedewald equation. Literature References: 1. Expert Panel on Integrated Guidelines for Cardiovascular Health and Risk Reduction in Children and Adolescents. Pediatrics 2011;128:S213 2. NCEP Expert Panel. Circulation 2004;110:227 3. Curt Neumann et al. JOSE Cardiol. 2019January 30;5(5):540-548. doi: 10.1001/jamacardio.2020.0013 Current Interpretive Data was last revised on 2024. Non-HDL Cholesterol 87 mg/dL [facility] ([place]) Comment: Interpretive [...] last revised on 2018. Chol/HDL ratio 3 [facility] ([place]) Blood 12/23/2024 2:33 PM CDT 12/23/2024 3:37 PM CDT Narrative [facility] ([place]) - 12/23/2024 4:37 PM CDT Has the patient been fasting for 8 hours or more?->No Porfirio Covarrubias MD LAB BLOOD ORDERABLES Fi nal Result [facility] ([place]) [address] [facility] [place] [address] * Comprehensive metabolic panel (12/23/2024 2:33 PM [...] Bilirubin, total <0.2 0.1 - 1.2 mg/dL [facility] ([place]) Protein, pl 6.6 6.5 [...] BLOOD ORDERABLES Fi nal Result [facility] [place]) 1 [facility] [place] [address] * Hepatitis C (HCV) RNA PCR, quantitative Blood (07/01/2024 9:33 AM CDT) [facility] HCV RNA result Not Detected [facility] Comment: Collection date/time has been modified to: 09:33:00. Previous collection date/time: 03:35:00. The quantifiable range of this assay is 15 IU/mL to 100,000,000 IU/mL (1.18 log IU/mL to 8.00 log IU/mL). Testing was performed by the BONNY 6800 HCV Test ([employer] Testing performed at [facility] Current Interpretive Data was last revised on 2021 Testing performed by: [facility], [address] [place]., [address] Blood 07/01/2024 9:33 AM CDT 07/01/2024 9:45 AM CDT Porfirio Covarrubias MD LAB MICROBIOLOGY - GENE RAL ORDERABLES Edited Result - Final Performing Organization Address City/[facility]/ZIP Co de Phone Number [facility] [place]) [address] [facility] [place] [address] [facility] * PAP SMEAR WITH HPV (09/28/2020) Historical Provider HEALTH MAINTENANCE Final Result * COLONOSCOPY (11/30/2015 12:00 AM HERPETOLOGY TEACHER) Anatomical Region Laterality Modality Other Narrative 11/30/2015 12:00 AM HERPETOLOGY TEACHER Ordered by an unspecified provider. Procedure Note ProviderNhan MD - 11/30/2015 12:00 AM CST PROCEDURE REPORT Patient: GIO RUSH Account: [id number] Room No: : 1960 Patient Type: SDS Attend.: Teto Schneider M.D. Admit Date: 11/30/2015 [...] Teto Baker MD On 12/02/2015 01:39 PM HERPETOLOGY TEACHER Teto Schneider M.D. ER/kg TD: 12/01/2015 11:01 Historical Provider ENDOSCOPY PROCEDURES Gisella l Result from Last 3 Months or Most Recently Relevant to Health Maintenance Insurance [facility] CIGNA WORKERS COMPENSATION GENERIC Care Teams Studio Hand Relationship Specialty Start Date End Date Porfirio Covarrubias MD PCP - General Family Medicine 06/24/24 Cam Amanda MD Enterprise Architect Obstetrics and Gynecology 12/16/19 Anaid Morrison MD [address] [facility] [address] [place] [address] Consulting Physician Sleep Medicine 06/24/24 [place] [address] [place] [address] Consulting Physician Urology 06/24/24 Meredith Mccormack DO [address] [facility] [address] [place] [address] Consulting Physician Endocrinology Diabetes & Metabolism 08/06/24
[2025-02-28 07:05] VITALS: BP 117/59; PULSE 62; RESP 16; TEMP 36.2; O2SAT 100
--- NOTE | 2025-02-28 07:28 | WPDHPUPDATE1 ---
History and Physical Update Update Date/Time: 02/28/25 07:28 History and Physical has been reviewed, including an updated exam of the patient. There are NO changes in the patient's condition. Risks, benefits, and alternatives have been discussed and questions answered. Patient agrees to proceed with procedure.
[2025-02-28] MEDS: LACTATED RINGERS 1,000 ML 30 ML IV CONT (07:45)
--- NOTE | 2025-02-28 07:58 | P.PNAN_ITS ---
Anes - Initial Pre Proc Eval Procedure: Operation Date: 02/28/25 09:00 Proposed Procedures p Neurostimulator Implant - Gino Rodríguez MD Date/Time: 02/28/25 07:58 Surgeon: Gino Rodríguez MD Pre Op Diagnosis: urge incontinence Patient Data Age: 64 Gender: F Height: 1.63 m Weight: 88.6 kg Allergies Allergy/AdvReac Type Severity Reaction Status Date / Time No Known Allergies Allergy Unverified 02/28/25 07:42 Home Medications ?Medication ?Instructions ?Recorded ?Confirmed ?Type cetirizine 10 mg tablet 10 mg PO HS 02/25/25 02/28/25 History fluticasone propionate 50 1 spray intranasal DAILY 02/25/25 02/28/25 History mcg/actuation nasal spray,suspension rosuvastatin 10 mg tablet 10 mg PO HS 02/25/25 02/28/25 History zolpidem 10 mg tablet 10 mg PO HS PRN insomnia 02/25/25 02/28/25 History hydrocodone 5 mg-acetaminophen 325 1 tablet PO Q6H PRN pain #20 tabs 02/28/25 Rx mg tablet Patient hx anesthesia problems: none Family hx anesthesia problems: none Results Review: All pre-operative results and documents have been reviewed as part of the pre- operative evaluation. [facility] Social History Social History Years smoked: 10 Smoking status: Former smoker Tobacco type: cigarettes Smoking end date: 02/25/10 Living arrangements: with family Spiritual care concerns: No Anes - Eval Final PreProcedure Day of Procedure 02/28/25 07:58 Patient weight: obese Heart: regular rate and rhythm Lungs: clear to auscultation Airway: Mallampati scale class II Neurological: alert and oriented Last oral intake: >/= 8 hours ASA classification: II Emergent: no Anesthetic plan: proceed Anesthesia type and monitoring: general GIVS and standard monitoring Results Review: All pre-operative results and documents have been reviewed as part of the pre- operative evaluation. Informed Consent: The patient's anesthetic plan and its attendant risks and benefits were discussed with the patient/family/POA. Questions were solicited and answers provided to the satisfaction of the patient/family/POA.
[2025-02-28] MEDS: ceFAZolin 2 GM/D5W 50 ML 2 GM/50 ML BAG IVPB (08:55)
[2025-02-28] MEDS: BUPIVACAINE/EPINEPHRINE 0.5% 50 ML VIAL 30 ML INFILTRATE (09:14)
[2025-02-28] MEDS: ceFAZolin SODIUM 1 GM VIAL IRRIGATION (09:15)
[2025-02-28 09:34] VITALS: BP 109/56; PULSE 59; RESP 16; O2SAT 98
--- NOTE | 2025-02-28 09:47 | W.PM.PROC2 ---
Procedure Note - Detailed Date of Procedure 02/28/25 Pre-op Diagnosis urge incontinence Post-op Diagnosis Same Procedure Performed Implantation of sacral lead 00889 Placement of implantable pulse generator 19292 Complex neurostimulator programming impedance check 46649 Surgeon Gino Rodríguez MD Anesthesia MAC and Local Indications This is a patient with refractory urge urinary incontinence. They have undergone a successful trial of sacral nerve stimulation. They present today for permanent implantation. They understand the risks of bleeding, infection, decreased efficacy, need for revision and battery changes. They agree to proceed Findings See dictated Description of Procedure They were correctly identified and informed consent was obtained. There brought to the operating room. There placed in the prone position. There given appropriate perioperative antibiotics. A time-out performed. I used fluoroscopy to maya out my sacral landmarks in the AP and the lateral orientation. I anesthetized the skin. I entered the S3 foramen. I monitored the needle with fluoroscopy. I got appropriate Maame and toe response at a low threshold. I made a skin emili. I placed a stylet. I placed the lead introducer sheath. I placed and deployed to my lead. I got appropriate responses again at a low threshold. I marked out the site of the pulse generator. I anesthetized the skin and made that incision. I created a subcutaneous pocket to house the pulse generator. I tunneled the lead towards this pocket. Appropriate connections were made between the lead and the battery. It was placed in the pocket. It was programmed and impedances were checked and found to be normal. I irrigated out all wounds. I ensured hemostasis. I closed the subcutaneous tissues with 2 Vicryl. I closed the skin with 4 0 Vicryl. Glue was applied. There then awakened and transferred to the PACU in stable condition. Implants Sacral neurostimulator Estimated Blood Loss 5 Drains No Packing No Pathology None sent Condition Stable Disposition PACU
[2025-02-28 10:00] VITALS: BP 109/56; PULSE 59; RESP 20
--- NOTE | 2025-02-28 10:07 | SUR.PHASEII ---
0945 - company rep in room programming device, pt verbalizes understanding
[2025-02-28 10:15] VITALS: BP 125/69; PULSE 55; RESP 20
== END 2025-02-28 10:19 | disposition home or self-care (01) ==
PROVIDERS: PCP Family Medicine; Visit Provider Urology
PROC: (CPT 64561; principal; 2025-02-28 09:00)
DX: N39.41 Urge incontinence (principal); Z87.891 Personal history of nicotine dependence; E66.9 Obesity, unspecified; Z68.37 Body mass index [BMI] 37.0-37.9, adult
CPT/HCPCS: 64561; 64590; 76000; C1767; C1778; C1787; J0690; J2003; J2004; J2250; J2704; J3010; J7120